=== PATIENT | male | born 1950 | race Caucasian/White ===

== ENCOUNTER 2018-04-03 13:18 | Day surgery (SDC) | payer MEDICARE, MEDICAID, OTHER ==
[2018-04-03] MEDS ORDERED: PROPOFOL 60 ML (14:24)
[2018-04-03] MEDS ORDERED: LIDOCAINE 100 MG SYRINGE (14:24)
== END 2018-04-03 15:04 | disposition home or self-care (01) ==
LOC: GIL 13:18
DX: Z12.11 Encounter for screening for malignant neoplasm of colon (principal); K64.8 Other hemorrhoids; K55.20 Angiodysplasia of colon without hemorrhage; I10 Essential (primary) hypertension
CPT/HCPCS: 45378